=== PATIENT | female | born 1950 | race Caucasian/White ===

== ENCOUNTER 2018-12-21 12:58 | Inpatient (IN) | payer OTHER ==
[~2018-12-21] VITALS: Ht 154.9 cm; Wt 86.2 kg
[~2018-12-21 12:58] MED LIST: NABUMETONE500 MG PO; PERCOCET 5/3251 TAB PO
[2018-12-21] MEDS ORDERED: LIPITOR20 MG PO (14:19)
[2018-12-21] MEDS ORDERED: SYNTHROID150 MCG PO (14:19)
[2018-12-21] MEDS ORDERED: METFORMIN HCL500 MG PO (14:20)
[2018-12-21] MEDS ORDERED: NEURONTIN300 MG PO (14:20)
[2018-12-21] MEDS ORDERED: TOPROL XL50 M1 PO (14:20)
[2018-12-21] MEDS ORDERED: CENTRUM MULTIG80 MCG PO (14:20)
[2018-12-21] MEDS ORDERED: VITAMIN D400 UNI2 PO (14:21)
== END 2018-12-30 15:18 | DRG 470 ==
LOC: SURH 12-28 06:58 → O/R 12-28 06:58 → SURH 12-28 13:08 → O/R 12-28 14:15 → SURH 12-30 15:18
PROVIDERS: ADMIT Orthopaedic Surgery
PROC: 0SRD0J9 Replacement of Left Knee Joint with Synthetic Substitute, Cemented, Open Approach (ICD-10-PCS; principal; 2018-12-28 13:00)
DX: M17.12 Unilateral primary osteoarthritis, left knee (principal); D62 Acute posthemorrhagic anemia; Z96.652 Presence of left artificial knee joint; E11.9 Type 2 diabetes mellitus without complications; I10 Essential (primary) hypertension

== ENCOUNTER 2022-05-12 08:05 | Outpatient (CLI) | payer OTHER ==
[~2022-05-12 08:05] MED LIST changes: +CENTRUM MULTIG80 MCG PO; +DICLOFENAC POTA50 MG PO; +LIPITOR20 MG PO; +METFORMIN HCL500 MG PO; +NEURONTIN300 MG PO; +SYNTHROID150 MCG PO; +TOPROL XL50 M1 PO; +VITAMIN D400 UNI2 PO; +ZANAFLEX2 MG PO
== END 2022-05-12 08:07 | disposition home or self-care (01) ==
LOC: SONOGRAMA 08:05
PROVIDERS: ATTEND Pathology Anatomic Pathology & Clinical Pathology
DX: E04.2 Nontoxic multinodular goiter (principal); D34 Benign neoplasm of thyroid gland; E06.3 Autoimmune thyroiditis

== ENCOUNTER 2024-02-19 07:20 | Outpatient (CLI) | payer OTHER | END 2024-02-19 07:21 | disposition home or self-care (01) | LOC: NUCLEAR 07:20 | PROVIDERS: ATTEND Specialist | DX: I20.9 Angina pectoris, unspecified (principal) | CPT/HCPCS: 78452; 93017; A9500; J0153 ==

== ENCOUNTER 2024-03-08 07:15 | Inpatient (IN) | payer OTHER ==
[~2024-03-08] VITALS: Ht 157.5 cm; Wt 83.0 kg
[2024-03-08] MEDS ORDERED: GABAPENTIN (08:02)
[2024-03-08] MEDS ORDERED: SYNTHROID150 MCG (08:03)
[2024-03-08] MEDS ORDERED: COZAAR25 MG (08:03)
[2024-03-08] MEDS ORDERED: FENOFIBRATE (08:04)
[2024-03-08] MEDS ORDERED: PANTOPRAZOLE SO40 M2 (08:04)
[2024-03-08 08:25] LABS: PH,URINE 5.5 (5.0-8.0); URINE APPEARANCE Clear; URINE BILIRRUBIN Negative (NEGATIVE); URINE COLOR Yellow; URINE GLUCOSE Negative (NEGATIVE); URINE KETONE Negative (NEGATIVE); URINE LEUKOCYTE Moderate; URINE NITRATE Negative; URINE PROTEIN Negative (NEGATIVE); URINE UROBILINOGEN 0.2 E.U./dl
[2024-03-08 08:53] LABS: INR 0.94; PARTIAL THROMBOPLASTIN TIME 30.7 SECONDS (22.0-34.0); PROTHROMBIN TIME 9.9 SECONDS (9.0-11.5)
[2024-03-08 08:55] LABS: HEMATOCRIT 34.9 % (36.0-45.00); MEAN CELL VOLUME 86.2 fL (80.00-100.00); MEAN CORPUSCULAR HEMOGLOBIN 29.5 pg (27.00-32.0); MEAN CORPUSCULAR HGB CONC 34.3 g/dl (32.0-36.0); PLATELET COUNT 299 K/uL (150-450); RED BLOOD COUNT 4.05 M/uL (4.00-6.00); RED CELL DISTRIBUTION WIDTH 14.7 % (11.5-14.5)
[2024-03-08 09:04] LABS: URINE EPITHELIAL CELLS 2.6 uL (0.0-38.8); URINE RBC 10.3 uL (0.0-20.8); URINE WBC 654.4 uL (0.0-23.2)
[2024-03-08 09:28] LABS: URINE BACTERIA > 9821.5 uL (0.0-1933); URINE BLOOD TRACE
[2024-03-08 09:51] LABS: BILIRUBIN TOTAL 0.34 mg/dL (0.3-1.2); CALCIUM 10.2 mg/dL (8.5-10.1); CREATININE SERUM 0.66 mg/dL (0.55-1.02); GFR 88.28; GLOBULINA 3.3 G/DL (2.4-3.5); POTASSIUM 4.95 mEq/L (3.5-5.1); TOTAL PROTEIN 7.3 gm/dL (6.4-8.2)
[2024-03-15] MEDS ORDERED: CEFAZOLIN SODIUM 1,000 MG VIAL ONE (05:46)
[2024-03-15] MEDS ORDERED: TRANEXAMIC ACID 100MG/1ML (1000MG) AMPUL IV ONE (05:47)
[2024-03-15] MEDS ORDERED: BUPIVACAINE HCL/MPF 0.5% 30ML VIAL ONE (06:57)
[2024-03-15] MEDS ORDERED: KETOROLAC TROMETHAMINE 60 MG VIAL IM ONE ×2 (06:57→09:00)
[2024-03-15] MEDS ORDERED: LIDOCAINE HCL 1%/EPINEPHRINE 20ML VIAL IJ ONE ×2 (06:57→09:15)
[2024-03-15] MEDS ORDERED: METHYLPREDNISOLONE ACETATE 80 MG/ML VIAL ONE (07:01)
[2024-03-15] MEDS ORDERED: POVIDONE-IODINE 118 ML BOTT TOP ONE (07:02)
[2024-03-15] MEDS ORDERED: MORPHINE SULFATE 4 MG/ML VIAL IV ONE (09:00)
[2024-03-15] MEDS ORDERED: TRANEXAMIC ACID 1,000 MG in 0.9 % SODIUM CHLORIDE 100 ML IV ONE (09:00)
[2024-03-15] MEDS ORDERED: CEFAZOLIN SODIUM 2,000 MG in 0.9 % SODIUM CHLORIDE 100 ML IV ONE (09:00)
[2024-03-15] MEDS ORDERED: METHYLPREDNISOLONE ACETATE 80 MG/ML VIAL IU ONE (09:15)
[2024-03-15] MEDS ORDERED: BUPIVACAINE HCL 30 ML VIAL IJ ONE (09:15)
[2024-03-15] MEDS ORDERED: SODIUM CHLORIDE 0.45 % 1,000 ML IV SCH (10:15)
[2024-03-15] MEDS ORDERED: ONDANSETRON HCL 2 MG/ML VIAL IV PRN (10:15)
[2024-03-15] MEDS ORDERED: MORPHINE SULFATE 4 MG/ML CARTRIDGE IV PRN (10:15)
[2024-03-15] MEDS ORDERED: OxyCODONE HCL 5 MG TABLET (ROXICODONE) PO PRN (10:15)
[2024-03-15] MEDS ORDERED: ACETAMINOPHEN 500 MG GEL..CAP PO SCH (12:00)
[2024-03-15] MEDS ORDERED: GABAPENTIN 300 MG CAPSULE PO SCH (17:00)
[2024-03-15] MEDS ORDERED: CEFAZOLIN SODIUM 1,000 MG VIAL IV SCH (17:00)
[2024-03-16] MEDS ORDERED: LEVOTHYROXINE SODIUM 150 MCG TABLET PO SCH (06:00)
[2024-03-16 07:42] LABS: HEMATOCRIT 31.5 % (36.0-45.00); HEMOGLOBIN 10.5 g/dL (12.0-15.00); MEAN CELL VOLUME 83.8 fL (80.00-100.00); MEAN CORPUSCULAR HGB CONC 33.4 g/dl (32.0-36.0); PLATELET COUNT 282 K/uL (150-450); RED BLOOD COUNT 3.76 M/uL (4.00-6.00); RED CELL DISTRIBUTION WIDTH 14.2 % (11.5-14.5)
[2024-03-16] MEDS ORDERED: APIXABAN 2.5 MG TABLET PO SCH (09:00)
[2024-03-16] MEDS ORDERED: SENNOSIDES 1 TAB TABLET PO SCH (09:00)
[2024-03-16] MEDS ORDERED: METOPROLOL SUCCINATE 50 MG TAB.SR.24H PO SCH (09:00)
[2024-03-16] MEDS ORDERED: LOSARTAN POTASSIUM 25 MG TABLET PO SCH (09:00)
[2024-03-17 05:22] LABS: MEAN CELL VOLUME 85.4 fL (80.00-100.00); MEAN CORPUSCULAR HEMOGLOBIN 28.4 pg (27.00-32.0); MEAN CORPUSCULAR HGB CONC 33.2 g/dl (32.0-36.0); PLATELET COUNT 312 K/uL (150-450); RED BLOOD COUNT 3.86 M/uL (4.00-6.00); RED CELL DISTRIBUTION WIDTH 14.3 % (11.5-14.5)
[2024-03-17] MEDS ORDERED: IRON FUM,PS/FOLIC ACID/VITC/B3 1 CAP CAPSULE PO SCH (09:00)
[2024-03-17] MEDS ORDERED: DUI500 PO (17:00)
[2024-03-17] MEDS ORDERED: ELIQUIS2.5 MG PO (17:00)
[2024-03-17] MEDS ORDERED: PERCOCET 5-3251 EACH PO (17:00)
== END 2024-03-17 18:52 | DRG 470 ==
LOC: O/R 03-15 05:16 → SURG 03-15 07:00 → SURH 03-15 10:20
PROVIDERS: ADMIT Orthopaedic Surgery; ATTEND Orthopaedic Surgery
PROC: 0SRC0J9 Replacement of Right Knee Joint with Synthetic Substitute, Cemented, Open Approach (ICD-10-PCS; principal; 2024-03-15 07:00)
DX: M17.11 Unilateral primary osteoarthritis, right knee (principal); M22.11 Recurrent subluxation of patella, right knee; I10 Essential (primary) hypertension; E03.9 Hypothyroidism, unspecified

== ENCOUNTER 2025-04-07 14:22 | Outpatient (CLI) | payer OTHER ==
[~2025-04-07 14:22] MED LIST changes: +COZAAR25 MG; +DUI500 PO; +ELIQUIS2.5 MG PO; +FENOFIBRATE; +GABAPENTIN; +PANTOPRAZOLE SO40 M2; +PERCOCET 5-3251 EACH PO; +SYNTHROID150 MCG
== END 2025-04-07 14:26 | disposition home or self-care (01) ==
LOC: MRI 14:22
DX: M41.9 Scoliosis, unspecified (principal); M48.02 Spinal stenosis, cervical region
CPT/HCPCS: 72141